=== PATIENT | male | born 1970 | race Caucasian/White ===

== ENCOUNTER → 2018-08-13 | Outpatient (CLI) | payer OTHER ==
[2018-08-13 19:29] LABS: ANION GAP 13.1; CHLORIDE,CL 105 mmol/L (101-111); SODIUM,NA 137 mmol/L (135-145)
== END ==
LOC: DL.CLIN 15:45
PROVIDERS: ATTEND Physician Assistant Medical
DX: Z12.5 Encounter for screening for malignant neoplasm of prostate (principal); K76.89 Other specified diseases of liver
CPT/HCPCS: 80053; G0103